=== PATIENT | female | born 1960 | race Caucasian/White ===

== ENCOUNTER 2021-05-07 13:25 | Outpatient (CLI) | payer OTHER | END 2021-05-07 13:26 | disposition home or self-care (01) | LOC: CSHRAD 13:25 | PROVIDERS: ATTEND Orthopaedic Surgery | DX: M54.5 Low back pain (principal); M47.817 Spondylosis without myelopathy or radiculopathy, lumbosacral region | CPT/HCPCS: 72100 ==

== ENCOUNTER 2021-08-08 12:37 | Outpatient (CLI) | payer OTHER | END 2021-08-08 12:38 | disposition home or self-care (01) | LOC: CSHLAB 12:37 | PROVIDERS: ATTEND Orthopaedic Surgery | DX: Z01.818 Encounter for other preprocedural examination (principal); Z20.822 Contact with and (suspected) exposure to COVID-19 | CPT/HCPCS: 80048; 85610; 85730; 86850; 86900; 86901; 93005; 93010; U0003; U0005 ==

== ENCOUNTER 2021-08-13 09:24 | Day surgery (SDC) | payer OTHER ==
[2021-08-08 14:44] LABS: PTT 26.1 sec (22.0-33.0); Prothrombin Time 10.7 sec (9.5-12.1)
[2021-08-08 14:51] LABS: Anion Gap 15 mmol/L (10-20); BUN (Urea Nitrogen) 9 mg/dL (9.8-20.1); Calc. Creatinine Clearance 0 mL/min (70-130); Calcium 8.9 mg/dL (7.8-10.44); Carbon Dioxide 25 mmol/L (23-31); Chloride 103 mmol/L (98-107); Glucose 167 mg/dL (80-115); Potassium 4.1 mmol/L (3.5-5.1); Sodium 139 mmol/L (136-145)
[2021-08-09 14:14] LABS: SARS-CoV-2 PCR by NAA Not Detected (NotDetected)
[2021-08-11 13:15] VITALS: BMI 25.7
[2021-08-13] MEDS ORDERED: Famotidine/PF 20 mg/2ml Vial ONE ×2 (10:03→11:55)
[2021-08-13] MEDS ORDERED: Lidocaine 1% MPF 2 ML VIAL ONE (10:03)
[2021-08-13 10:26] LABS: Hemoglobin 14.3 g/dL (12.0-15.5); Mean Corpuscular HGB CONC 32.6 g/dL (32.0-36.0); Mean Corpuscular Hemoglobin 31.4 pg (27.0-33.0); Mean Corpuscular Volume 96.3 fl (81.6-98.3); Mean Platelet Volume 9.5 fl (7.4-10.4); Platelet Count 260 10x3/uL (150-450); RBC Distribution Width 12.7 % (11.5-14.5); Red Blood Cell (RBC) Count 4.56 10x6/uL (3.90-5.03); White Blood Cell (WBC) Count 8.7 10x3/uL (3.5-10.5)
[2021-08-13] MEDS ORDERED: Midazolam HCl 2 mg/2 ml Vial ONE (11:30)
[2021-08-13] MEDS ORDERED: Metoclopramide HCl 10 MG/2 ML VIAL ONE (11:36)
[2021-08-13] MEDS ORDERED: PROPOFOL 20 ML ONE (11:36)
[2021-08-13] MEDS ORDERED: Ondansetron PF 4 MG/2 ML Vial ONE (11:36)
[2021-08-13] MEDS ORDERED: Dexamethasone 4 mg/ml Vial ONE ×2 (11:36→12:28)
[2021-08-13] MEDS ORDERED: Fentanyl 100 MCG/2 ML VIAL ONE ×2 (11:36→14:23)
[2021-08-13] MEDS ORDERED: Rocuronium Bromide 10 MG/ML (10ML VIAL) ONE (11:36)
[2021-08-13] MEDS ORDERED: Ketorolac Tromethamine 30 MG/ML VIAL ONE (11:37)
[2021-08-13] MEDS ORDERED: Lidocaine 2% PF 5 ML VIAL ONE (11:37)
[2021-08-13] MEDS ORDERED: SUGAMMADEX SODIUM 200 MG/2 ML VIAL ONE (11:37)
[2021-08-13] MEDS ORDERED: Bupivacaine 0.25% HCL 30 ML VIAL ONE (11:57)
[2021-08-13] MEDS ORDERED: EPINEPHrine 1 MG/ML AMP ONE (11:57)
[2021-08-13] MEDS ORDERED: PHENYLEPHRINE-NS 100 MCG/ML 10 ML SYRINGE ONE (12:56)
[2021-08-13] MEDS ORDERED: ePHEDrine Sulfate 50 MG/10 ML VIAL ONE (13:31)
[2021-08-13] MEDS ORDERED: HYDROcodone/Acetaminophen 5/325 mg Tablet ONE (15:27)
== END 2021-08-13 16:00 | disposition home or self-care (01) ==
LOC: CSHSDC 09:24
PROVIDERS: ATTEND Orthopaedic Surgery
DX: M46.1 Sacroiliitis, not elsewhere classified (principal); M54.18 Radiculopathy, sacral and sacrococcygeal region
CPT/HCPCS: 36415; 72110; 76000; 80048; 85027; 85610; 85730; 86850; 86900; 86901; C1713; C1889; J0171; J0690; J1100; J1885; J2001; J2250; J2405; J2704; J2765; J3010; J7620; S0020; S0028; U0003; U0005

== ENCOUNTER 2022-04-23 08:52 | Outpatient (CLI) | payer OTHER | END 2022-04-23 08:53 | disposition home or self-care (01) | LOC: CSHULT 08:52 | PROVIDERS: ATTEND Internal Medicine Gastroenterology | DX: R10.9 Unspecified abdominal pain (principal); K80.20 Calculus of gallbladder without cholecystitis without obstruction | CPT/HCPCS: 76700 ==

== ENCOUNTER 2022-06-27 11:38 | Emergency (ER) | payer OTHER ==
[2022-06-27] MEDS ORDERED: Ondansetron PF 4 MG/2 ML Vial ONE ×2 (12:35→15:38)
[2022-06-27] MEDS ORDERED: Morphine 4 MG/ML VIAL ONE (12:35)
[2022-06-27 13:10] LABS: #Eosinphils 0.1 10x3/uL (0.0-0.5); #Monocytes 0.5 10x3/uL (0.0-1.1); #Neutrophils 4.7 10x3/uL (1.5-8.4); %Basophils 0.3 % (0.0-2.0); %Eosinophils 0.8 % (0.0-6.0); %Lymphocytes 41.2 % (18.0-47.0); %Monocytes 5.4 % (0.0-10.0); Hemoglobin 13.8 g/dL (12.0-15.5); Mean Corpuscular HGB CONC 33.9 g/dL (32.0-36.0); Mean Corpuscular Hemoglobin 31.9 pg (27.0-33.0); Mean Platelet Volume 9.5 fl (7.4-10.4); Platelet Count 298 10x3/uL (150-450); RBC Distribution Width 12.5 % (11.5-14.5); Red Blood Cell (RBC) Count 4.33 10x6/uL (3.90-5.03); White Blood Cell (WBC) Count 9.1 10x3/uL (3.5-10.5)
[2022-06-27 13:33] LABS: ALT (SGPT) 16 U/L (8-55); AST (SGOT) 14 U/L (5-34); Albumin 4.1 g/dL (3.4-4.8); Alkaline Phosphatase 77 U/L (40-110); Anion Gap 19 mmol/L (10-20); BUN (Urea Nitrogen) 12 mg/dL (9.8-20.1); Bilirubin, Total 0.2 mg/dL (0.2-1.2); Calc. Creatinine Clearance 0 mL/min (70-130); Calcium 9.4 mg/dL (7.8-10.44); Carbon Dioxide 22 mmol/L (23-31); Chloride 103 mmol/L (98-107); Estimated GFR 92; Globulin 2.6 g/dL (2.4-3.5); Glucose 124 mg/dL (80-115); Lipase 40 U/L (8-78); Potassium 4.4 mmol/L (3.5-5.1); Protein, Total 6.7 g/dL (5.8-8.1); Sodium 140 mmol/L (136-145)
[2022-06-27] MEDS ORDERED: Piperacillin/Tazobactam 4.5 GM VIAL ONE (13:46)
[2022-06-27 14:21] LABS: Bilirubin Neg (Negative); Blood, Urine Negative (Negative); Clarity Clear (Clear); Glucose, Urine (Dipstick) Normal (Negative); Ketone, Urine Negative (Negative); Leukocyte Negative (Negative); Nitrite Negative (Negative); Protein, Urine (Dipstick) Negative (Neg-Trace); Specific Gravity, Urine 1.005 (1.005-1.030); Urobilinogen Normal mg/dL (Less than 2)
[2022-06-27] MEDS ORDERED: EPINEPHrine 1 MG/ML AMP ONE (14:43)
[2022-06-27] MEDS ORDERED: Bupivacaine 0.25% HCL 30 ML VIAL ONE (14:43)
[2022-06-27 14:52] LABS: SARS-CoV-2 NAA Rapid Test Not Detected (NotDetected)
[2022-06-27] MEDS ORDERED: Fentanyl 100 MCG/2 ML VIAL ONE ×2 (15:20→16:45)
[2022-06-27] MEDS ORDERED: Lidocaine 2% PF 5 ML VIAL ONE (15:20)
[2022-06-27] MEDS ORDERED: PROPOFOL 20 ML ONE (15:20)
[2022-06-27] MEDS ORDERED: Rocuronium Bromide 10 MG/ML (10ML VIAL) ONE (15:21)
[2022-06-27] MEDS ORDERED: Dexamethasone 20 MG/5 ML VIAL ONE (15:38)
[2022-06-27] MEDS ORDERED: PHENYLEPHRINE-NS 100 MCG/ML 10 ML SYRINGE ONE (15:54)
[2022-06-27] MEDS ORDERED: Glycopyrrolate 0.2 MG/ML 5 ML SYRINGE ONE (16:09)
[2022-06-27] MEDS ORDERED: SUGAMMADEX SODIUM 200 MG/2 ML VIAL ONE (16:20)
[2022-06-27] MEDS ORDERED: Metoprolol Tartrate 5 MG/5 ML VIAL ONE (16:33)
[2022-06-27] MEDS ORDERED: hydrALAZINE 20 MG/ML VIAL ONE (16:51)
[2022-06-27] MEDS ORDERED: HYDROcodone/Acetaminophen 5/325 mg Tablet ONE (17:35)
== END 2022-06-27 15:28 | disposition admitted as inpatient to this hospital (09) ==
LOC: CSHERS 11:38
PROC: 0FT44ZZ Resection of Gallbladder, Percutaneous Endoscopic Approach (ICD-10-PCS; principal; 2022-06-27)
DX: K80.10 Calculus of gallbladder with chronic cholecystitis without obstruction (principal); I10 Essential (primary) hypertension; E78.5 Hyperlipidemia, unspecified; Z20.822 Contact with and (suspected) exposure to COVID-19
CPT/HCPCS: 76705; 80053; 81003; 83690; 84484; 85025; 88304; 88313; 93005; 94760; 96361; 96365; 96375; C1889; J0171; J0360; J1100; J2001; J2270; J2405; J2543; J2704; J3010; S0020; U0002

== ENCOUNTER 2022-08-06 11:39 | Outpatient (CLI) | payer OTHER | END 2022-08-06 11:40 | disposition home or self-care (01) | LOC: CSHRAD 11:39 | PROVIDERS: ATTEND Orthopaedic Surgery | DX: M54.50 Low back pain, unspecified (principal) | CPT/HCPCS: 72100 ==

== ENCOUNTER 2024-02-21 15:00 | Emergency (ER) | payer MEDICARE, OTHER | END 2024-02-21 22:13 | disposition short-term general hospital (02) | LOC: CSHERS 15:00 | DX: I67.1 Cerebral aneurysm, nonruptured (principal); I10 Essential (primary) hypertension; R07.9 Chest pain, unspecified; F17.210 Nicotine dependence, cigarettes, uncomplicated | CPT/HCPCS: 70496; 70498; 71045; 80053; 83690; 84484; 85025; 93005; 96374; 96375; 99285; J1200; J2920; S0028; Q9967 ==

== ENCOUNTER 2025-08-02 07:42 | Outpatient (CLI) | payer MEDICARE ==
[2025-08-02 08:43] LABS: Estimated GFR - POC 70.0
== END 2025-08-02 07:43 | disposition home or self-care (01) ==
LOC: CSHCT 07:42
PROVIDERS: ATTEND Psychiatry & Neurology Neurology
DX: I67.1 Cerebral aneurysm, nonruptured (principal); Z95.828 Presence of other vascular implants and grafts
CPT/HCPCS: 70496; 82565